=== PATIENT | male | born 1965 | race Two or more races ===

== ENCOUNTER 2016-06-30 12:17 | Emergency (ER) | payer SELFPAY ==
[~2016-06-30] VITALS: Ht 160 cm; Wt 61.2 kg
[~2016-06-30 12:17] MED LIST: IBUPROFEN600 MG ORAL; NKM; NORCO1 E1 ORAL
[2016-06-30] MEDS ORDERED: Mylanta II UD 30ml ORAL ONE (12:45)
[2016-06-30] MEDS ORDERED: Lidocaine 2% Visc 15ml soln ORAL ONE (12:45)
[2016-06-30] MEDS ORDERED: Dicyclomine HCl 10mg/5ml oral soln ORAL ONE (12:45)
[2016-06-30 12:58] VITALS: BP 181/98
[2016-06-30 13:31] VITALS: BP 165/81
[2016-06-30] MEDS ORDERED: MIRALAX119 GM PO (13:34)
[2016-06-30] MEDS ORDERED: CYCLOBENZAPRINE10 MG ORAL (13:34)
[2016-06-30] MEDS ORDERED: COLACE100 MG ORAL (13:34)
[2016-06-30] MEDS ORDERED: IBUPROFEN600 MG ORAL (13:34)
--- NOTE | 2016-06-30 14:13 | Diagnostic Imaging Report ---
Indication: Left lower quadrant abdominal pain times one year Technique: Supine view of the abdomen Comparison: Lapper image from CT scan of the 03/24/2014 Findings: The bowel gas pattern is unremarkable. No unusual masses or calcifications. The right upper pole renal calculus described on prior abdomen CT is not evident on plain radiograph Impression: Negative
--- NOTE | 2016-06-30 16:34 | Emergency Room Report ---
History of Present Illness General Chief Complaint: Abdominal Pain Source: Patient Present Illness HPI The patient is a 51-year-old male presenting with left upper quadrant abdominal pain which began one year prior. The patient states the pain is off-and-on it is usually worse after eating. Pain is described as a 9/10 dull ache. It does not radiate. The patient states that he is having been seen for this. The patient also admits to left mid back pain which occurred last week after twisting. This pain is described as a 5/10 dull ache and does not radiate. Pain worse with bending over and twisting. Pt denies prior injury to this area. The patient denies any other symptoms including N, V, F, chills, SOB, CP, diarrhea, constipation Allergies: Coded Allergies: No Known Allergies (Unverified , 03/24/14) Patient History Past Medical History: see triage record Pertinent Family History: none Reviewed Nursing Documentation: PMH: Agreed, PSxH: Agreed Nursing Documentation-PMH Past Medical History: No Stated History Review of Systems All Other Systems: negative except mentioned in HPI Physical Exam Vital Signs Date Time Temp Pulse Resp B/P Pulse Ox O2 Delivery O2 Flow Rate FiO2 06/30/16 12:24 97.9 84 18 181/98 98 Room Air Sp02 EP Interpretation: reviewed, normal General Appearance: no apparent distress, alert, GCS 15, non-toxic Head: normocephalic, atraumatic Eyes: bilateral eye PERRL, bilateral eye normal inspection Neck: full range of motion, supple/symm/no masses Respiratory: chest non-tender, lungs clear, normal breath sounds, no wheezing, speaking full sentences Cardiovascular #1: regular rate, rhythm, no edema Gastrointestinal: normal bowel sounds, soft, non-distended, no guarding, no rebound, tenderness - TTP over LUQ and epigastric region Rectal: deferred Musculoskeletal: back normal, gait/station normal, normal range of motion, tender - L thoracic paraspinous muscles Neurologic: alert, oriented x3, responsive, motor strength/tone normal, sensory intact, speech normal Psychiatric: judgement/insight normal, memory normal, mood/affect normal, no suicidal/homicidal ideation Skin: normal color, no rash, warm/dry, well hydrated Lymphatic: no adenopathy Medical Decision Making PA Attestation Dr. Busby is my supervising physician. Patient management was discussed with my supervising physician Diagnostic Impression: Primary Impression: Muscle strain Additional Impressions: GERD (gastroesophageal reflux disease) Constipation ER Course The patient is a 51-year-old male presenting with left upper quadrant pain and left mid back pain. Differential diagnosis considered: Gastroenteritis, GERD, pancreatitis, contusion, muscle strain, muscle spasm, pyelonephritis, nephrolithiasis Physical exam: Vitals within normal limits. No apparent distress Abdomen is soft. Normal bowel sounds Tenderness to palpation over epigastric and left upper quadrant. There is tenderness to palpation over the left thoracic paraspinous muscles. No CVA tenderness Otherwise exam is unremarkable The patient is given a GI cocktail and is feeling better The patient will be discharged home with a prescription for MiraLAX, Colace, Flexeril, and Pepcid. Patient will follow up with PMD. ER precautions are given Other X-Ray Diagnostic Results Other X-Ray Diagnostic Results : X-Ray Ordered: Abd Xray Date: Jun 30, 2016 EP Interpretation: Yes Findings: no fractures, no dislocation, no soft tissue swelling, other - bowel impaction Number of Views: 1 PA Scribe Text I am acting as scribe for my supervising physician. My supervising physician's interpretation of the abd xrays are there is significant stool. Otherwise unremarkable. Last Vital Signs Date Time Temp Pulse Resp B/P Pulse Ox O2 Delivery O2 Flow Rate FiO2 06/30/16 13:31 97.9 73 18 165/81 98 Room Air Status: improved Disposition: HOME, SELF-CARE Condition: Improved Scripts Cyclobenzaprine Hcl* (FLEXERIL*) 10 Mg Tablet 10 MG ORAL THREE TIMES A DAY, #15 TAB Prov: TERZIAN,ALEJANDRA P.A. 06/30/16 Docusate Sodium* (COLACE*) 100 Mg Capsule 100 MG ORAL DAILY, #14 CAP Prov: TERZIAN,ALEJANDRA P.A. 06/30/16 Polyethylene Glycol 3350 (MIRALAX) 119 Gm Powder 17 GM PO DAILY, #119 GM Prov: TERZIAN,ALEJANDRA P.A. 06/30/16 Ibuprofen* (MOTRIN*) 600 Mg Tablet 600 MG ORAL Q8H Y for For Pain, #30 TAB 0 Refills Prov: TERZIAN,ALEJANDRA P.A. 06/30/16 Patient Instructions: Constipation, Adult, Muscle Strain, Gastroesophageal Reflux Disease, Adult Additional Instructions: I discussed my findings with the patient. All questions and concerns have been answered. Treatment and medication compliance have been addressed. I advised the patient that they need to follow up with PMD in 3-5 days. Return to ED if symptoms worsen, new symptoms arise, or if needed for any reason. Patient verbalized understanding of discharge instructions. ALEJANDRA JARA Jun 30, 2016 16:34
== END 2016-06-30 13:43 | disposition home or self-care (01) ==
LOC: EMR 13:05
DX: K21.9 Gastro-esophageal reflux disease without esophagitis (principal); K59.00 Constipation, unspecified; T14.8 Other injury of unspecified body region; X58.XXXA Exposure to other specified factors, initial encounter; Y92.9 Unspecified place or not applicable; Y99.8 Other external cause status
CPT/HCPCS: 74000; 99284